=== PATIENT | female | born 1975 | race Caucasian/White ===

== ENCOUNTER 2018-03-09 21:14 | Emergency (ER) | payer BC ==
[~2018-03-09 21:14] MED LIST: VIBRAMYCIN100 MG PO
[2018-03-09] MEDS ORDERED: DEXAMETHASONE/NE5 M1 OP (21:25)
[2018-03-09] MEDS ORDERED: CYCLOBENZAPRINE10 M1 PO (22:09)
[2018-03-09] MEDS ORDERED: EC-NAPROSYN500 MG PO (22:09)
[2018-03-09 22:42] VITALS: BP 140/103
== END 2018-03-09 22:42 | disposition home or self-care (01) ==
LOC: ED 21:14
DX: S39.012A Strain of muscle, fascia and tendon of lower back, initial encounter (principal); X50.0XXA Overexertion from strenuous movement or load, initial encounter; F17.200 Nicotine dependence, unspecified, uncomplicated
CPT/HCPCS: J1885

== ENCOUNTER → 2018-03-20 | Outpatient (CLI) | payer BC ==
[2018-03-09 22:42] VITALS: BP 140/103
[~2018-03-20] MED LIST changes: +CYCLOBENZAPRINE10 M1 PO; +DEXAMETHASONE/NE5 M1 OP; +EC-NAPROSYN500 MG PO
== END ==
LOC: RAD 13:00
DX: M51.16 Intervertebral disc disorders with radiculopathy, lumbar region (principal); M48.062 Spinal stenosis, lumbar region with neurogenic claudication

== ENCOUNTER 2018-07-13 13:00 | Outpatient (RCR) | payer BC | END 2018-07-24 | disposition home or self-care (01) | LOC: PT | DX: Z47.89 Encounter for other orthopedic aftercare (principal); R29.898 Other symptoms and signs involving the musculoskeletal system ==

== ENCOUNTER → 2023-02-02 | Outpatient (CLI) | payer OTHER | LOC: RAD 18:09 | DX: M25.572 Pain in left ankle and joints of left foot (principal) ==

== ENCOUNTER → 2024-10-23 | Outpatient (CLI) | payer OTHER | LOC: RAD 13:56 | DX: M25.832 Other specified joint disorders, left wrist (principal); W19.XXXA Unspecified fall, initial encounter ==